=== PATIENT | male | born 1965 | race Caucasian/White ===

== ENCOUNTER 2017-02-01 09:14 | Outpatient (CLI) | payer OTHER ==
[2017-02-01 10:01] LABS: eGFR (African) > 60; eGFR (Non-African) > 60
== END 2017-02-01 09:15 ==
LOC: LAB 09:14
PROVIDERS: ATTEND Physician Assistant
DX: R53.83 Other fatigue (principal); W57.XXXA Bitten or stung by nonvenomous insect and other nonvenomous arthropods, initial encounter; I10 Essential (primary) hypertension
CPT/HCPCS: 36415; 80053; 86618; 86666; 86757

== ENCOUNTER 2017-08-06 11:26 | Outpatient (CLI) | payer OTHER ==
[2017-08-06 11:41] LABS: APPEARANCE,URINE Clear (CLEAR); COLOR,URINE Yellow (YELLOW); OCCULT BLOOD,URINE Trace-lysed (NEGATIVE); PH URINE 5.5 (5.0 - 8.0); UROBILINOGEN URINE 0.2 Eu (0.2-1.0)
== END 2017-08-06 11:30 ==
LOC: LAB 11:26
PROVIDERS: ATTEND Physician Assistant
DX: R31.1 Benign essential microscopic hematuria (principal)
CPT/HCPCS: 81002

== ENCOUNTER 2017-09-26 10:12 | Outpatient (CLI) | payer OTHER ==
--- NOTE | 2017-09-26 18:35 | Diagnostic Imaging Report ---
JAXSON SUÁREZ [facility] [address] [facility] [address] [place] [address]. [id number] Report Submission Date: Sep 26, 2017 10:53:35 AM SUPERVISOR WRAPPING ROOM Patient Study Name: ROOPA VILLAFANA Date: Sep 26, 2017 10:24:44 AM SUPERVISOR WRAPP[employer] ROOM Modality Type: DX Gender: M Description: UPPER EXTREMITY : 65 Institution: [facility] Physician: JAXSON SUÁREZ Examination: Plain film right elbow History: RT ELBOW, PAIN IN RT ELBOW OVER LATERAL EPICONDYLE, SINCE July AFTER SWINGING SLEDGE HAMMER (Hx) Comparison exams: None provided Findings: 2 views of the right elbow demonstrates mild ossific spurring involving the epicondyles - lateral greater than medial. No other cortical abnormality. No dislocation. Radial head is within normal limits. No joint effusion Impression: Mild humeral epicondyle ossific spurring - small tug avulsions cannot be excluded. Recommend obtaining MRI to further evaluate. Electronically signed on Sep 26, 2017 10:53:35 AM SUPERVISOR WRAPP[employer] ROOM by: Jonathan LORD
== END 2017-09-26 10:45 ==
LOC: RAD 10:12
PROVIDERS: ATTEND Family Medicine
DX: M25.521 Pain in right elbow (principal)
CPT/HCPCS: 73070